=== PATIENT | female | born 1935 | race Caucasian/White ===

== ENCOUNTER 2016-12-02 18:07 | Inpatient (IN) | payer MEDICARE, OTHER ==
--- NOTE | ~2016-12-02 | HP ---
History And Physical [place] [id number] [facility] [place]. 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 She also has a history of hypothyroidism, hypertension, degenerative joint disease, osteoarthritis that she has been presenting today to [facility] accompanied by her with complaints of feeling extremely weak, pale, and not feeling well. It is important to note that in October, she has been started on chemotherapy under Dr. Martin's guidance. She received chemotherapy at [place]. She also received in the past an experimental drug after started on chemotherapy. The patient started to significantly decline according to her. She sees Dr. Martin each weak, and for about one week or so, she has been feeling sick and extremely weak. The weakness was progressive. She went to his office where lab work has shown that she has been extremely pancytopenic, anemic, and thrombocytopenic. She has been transfused blood and platelets, and according to Dr. Richards, who saw the patient at [facility], the patient has been discharged home yesterday in good condition. She does have significant decreased appetite though and constipation. She said she has not had a bowel movement in more than one week. She does not have a great appetite either. She does have a slightly cough. No sputum production, no dysuria no diarrhea, some constipation. Mild abdominal pain. No vomiting. No other complaints. She came to the Emergency Room, and after initial evaluation, she has been found profoundly pancytopenic. As a result, Hospitalist Service has been asked for admission, further evaluation, and treatment. PAST MEDICAL HISTORY: Significant for AML currently under treatment at [facility], history of degenerative joint disease, osteoarthritis, history of hypothyroidism and hypertension, history of fungal sinusitis in the past treated with amphotericin B. PAST SURGICAL HISTORY: Include bilateral hip replacement, hysterectomy, hematoma surgery, and sinus surgery for a fungus ball in June. SOCIAL HISTORY: She is not a smoker. She quit smoking 40 years ago. No alcohol. No IV drugs. She is . Her is at bedside and she has four children. ALLERGIES: SHE IS ALLERGIC TO CODEINE AND OXYCODONE. MEDICATIONS: Include Tylenol, Zovirax, Norvasc, vitamin B, biotin, Dacogen, Colace, Anca, levothyroxine, Prinivil, probiotic, Zofran, MiraLAX, Zantac, and Ultram. REVIEW OF SYSTEMS: A 14-point review of systems has been obtained and pertinent positive has been listed into the history of present illness. Otherwise, negative except those underlying above. PHYSICAL EXAMINATION: VITAL SIGNS: The patient currently is afebrile. Blood pressure 110/37, heart rate 85, History And Physical [address] [address] NAME: FAITH DAWKINS : 39 STATUS : ADM IN [facility]#: [id number] AGE: 81 ADM/REG DATE : 12/02/16 MR#: [id number] REPORT SERV DATE: 12/02/16 DICTATED BY: KACEY JACKSON DATE: 12/02/16 REPORT STATUS : Draft TRANSCRIBED BY: LORI DATE: 12/02/16 respiratory rate 23, and saturating 100% on room air. Very chronically ill-appearing female, in mild to moderate distress. She is alert and oriented x3. Very weak. She is very pale. Follows commands appropriately. HEENT: Show normocephalic, atraumatic. Throat is clear. Pupils equal, round, and reactive to light. Extraocular movements intact. NECK: No JVD. No lymphadenopathy. No thyromegaly appreciated. CHEST: Eval shows bilateral air entry. Diminished breath sounds bibasilarly. No wheezes, crackles, or rhonchi appreciated. CARDIOVASCULAR: She has regular rate and rhythm. S1, S2 positive. No S3, no S4. No murmurs, rubs, or gallops appreciated. ABDOMEN: Soft, nontender. No guarding. No rebound. EXTREMITIES: No clubbing, cyanosis, or erythema. NEUROLOGIC: She is alert and oriented x3. She is extremely weak. She follows commands. She moves all her extremities, but very slow. LABORATORY DATA: Labs from today include sodium 130, potassium 5.1, chloride 106, CO2 of 24, BUN 50, creatinine 1, and glucose is 242. Her total bilirubin is 0.5, alkaline phosphatase 74, ALT 10, and AST 7. Troponin I less than 0.02. White count is 0.6, hemoglobin 4.1, hematocrit 11.7, platelets are 7. Her INR is 1.6. Her chest x-ray does not show any acute infiltrate that I could be appreciated. ASSESSMENT AND PLAN: This is a very pleasant 81-year-old female with AML. 1. Pancytopenia. 2. History of AML. 3. Acute kidney injury. 4. Failure to thrive. 5. Hypothyroidism. 6. Degenerative joint disease and osteoarthritis. 7. Constipation. PLAN: 1. The patient is going to be admitted to Oncology Service regarding her pancytopenia. I am going to transfuse her four units of packed red blood cells and one unit of mono donor platelets. I am going to place her on broad-spectrum antibiotics with cefepime and vancomycin due to severity of her neutropenia. Consult Dr. Richards of Oncology Service. We will follow up the chest x-ray. We will get a CAT scan of the abdomen and pelvis in the morning. Provide supportive treatment as well. Nausea and pain control. 2. Acute kidney injury. We are going to provide vigorous IV hydration and follow a.m. labs. 3. Hypothyroidism. We will continue her home medications. 4. Degenerative joint disease and osteoarthritis. Provide supportive treatment. We will provide GI prophylaxis as well. I have discussed extensively with the patient as well as the patient's . The patient wishes in case her condition deteriorates and she has expressed her wishes that she does not want any aggressive measures such as intubation, mechanical ventilation, no CPR, no medications to treat life-threatening arrhythmia or hemodynamic deterioration according to the patient's prior wishes well History And Physical [address] [place]. [address] NAME: FAITH DAWKINS : 39 STATUS : ADM IN [facility]#: [id number] AGE: 81 ADM/REG DATE : 12/02/16 MR#: [id number] REPORT SERV DATE: 12/02/16 DICTATED BY: KACEY JACKSON DATE: 12/02/16 REPORT STATUS : Draft TRANSCRIBED BY: MODL DATE: 12/02/16 stated. We will honor patient, and family wishes, and make her do not resuscitate. Further workup and recommendation pending above. It is worthwhile to note that the patient is going to be followed up by Dr. Julius Husain. CF/MODL Kacey Jackson M.D. / [id number] CC: Maxim Willoughby M.D.
--- NOTE | ~2016-12-02 | DS ---
Discharge Summary [place] [address] [place]. [address] NAME: FAITH DAWKINS : 39 STATUS : DIS IN PAT#: [id number] AGE: 81 ADM/REG DATE : 12/02/16 MR#: [id number] REPORT SERV DATE: 12/04/16 DICTATED BY: DATE: REPORT STATUS : Draft TRANSCRIBED BY: MODL DATE: 12/03/16 ADMISSION DATE: 12/02/2016 DISCHARGE DATE: 12/03/2016 SUMMARY: DATE AND TIME OF : 12/03/2016 at 9:15 a.m. HOSPITAL COURSE: The patient was a 81-year-old female with a medical history significant for AML currently under treatment at [facility]. The patient was recently admitted to [facility] for severe pancytopenia. The patient received blood and platelet transfusion, and was discharged home two days ago. The patient presented to [facility] Emergency Department on 12/02/2016 with complaints of extreme weakness and decreased appetite. Initial evaluation included CBC, which reported white count 0.6, hemoglobin of 4.1, and hematocrit of 11.7. Platelets were 7. The patient was admitted for further evaluation and treatment regarding severe pancytopenia requiring transfusions. Four units of packed red blood cells and one unit of platelets were ordered in addition to CT scan of the abdomen and pelvis. The patient was also placed on broad-spectrum antibiotics to include cefepime and vancomycin due to severity of neutropenia. There was concern for underlying bleeding, source uncertain. Also concern for constipation, times at least seven days. The patient had received three of four units packed red blood cells this a.m. before being transported to Radiology for CT scan. Upon returning to the room, nurse reported the patient's blood pressure to be 75/40. Upon initial assessment the patient appeared pale, was unresponsive with agonal respirations. Time of was noted to be 9:15 a.m. Cause of related to shock secondary to likely hemorrhagic shock from occult blood, uncertain source. Also concern for bowel perforation in the setting of abdominal distention, and history of constipation for approximately one week. RICCARDO/LORI ALIZA HigginsC / [id number] Discharge Summary [place] [address] [place]. [address] NAME: FAITH DAWKINS : 39 STATUS : DIS IN PAT#: [id number] AGE: 81 ADM/REG DATE : 12/02/16 MR#: [id number] REPORT SERV DATE: 12/04/16 DICTATED BY: DATE: REPORT STATUS : Draft TRANSCRIBED BY: MODL DATE: 12/03/16 CC: MD Maxim Boone II, M.D.
[2016-12-02 17:38] LABS: BASOPHILS 1.6 %; BASOPHILS ABSOLUTE 0.01 10/3/uL (0.0-0.16); EOSINOPHILS 1.6 %; EOSINOPHILS ABSOLUTE 0.01 10/3/uL (0.0-0.53); ER CBC TAT 0 Hrs 09 Mins; HEMATOCRIT 11.8 % (36.0-48.0); HEMOGLOBIN 4.1 g/dL (12.0-16.0); LYMPHOCYTES 60.7 %; LYMPHOCYTES ABSOLUTE 0.37 10/3/uL (0.67-4.30); MEAN CORPUS HGB CONC 34.7 g/dL (32.0-36.0); MEAN CORPUSCULAR HEMOGLOB 28.7 pg (26.0-34.0); MEAN CORPUSCULAR VOLUME 82.5 fL (80-100); MONOCYTES 24.6 %; MONOCYTES ABSOLUTE 0.15 10/3/uL (0.21-1.20); NEUTROPHILS 11.5 %; NEUTROPHILS ABSOLUTE 0.07 10/3/uL (2.02-8.40); PLATELET COUNT 7 10/3/uL (150-400); RBC DISTRIBUTION WIDTH 14.6 % (12.0-16.0); RED CELL COUNT 1.43 10/6/uL (4.0-5.6); WHITE BLOOD CELLS 0.6 10/3/uL (4.5-10.5)
[2016-12-02 17:40] LABS: INTERNATIONAL NORMAL RATI 1.6 UNITS (-); PARTIAL THROMBO TIME 39.2 SEC (22.5-37.2)
[2016-12-02 17:43] LABS: MANUAL DIFF NO %
[2016-12-02 17:45] LABS: PROTIME (NOT ORD) 19.3 SEC (12.0-14.5)
[2016-12-02 17:50] LABS: CHLORIDE, SERUM 106 MMOL/L (96-112); CO2 (CARBON DIOXIDE) 24 MMOL/L (24-34); GFR AFRICAN AMERICAN 55 ML/MIN (>=60); GFR NON AFRICAN AMERICAN 48 ML/MIN (>=60); POTASSIUM, SERUM 5.1 MMOL/L (3.5-5.3); SGOT(AST) 7 U/L (5-40); SGPT(ALT) 10 U/L (5-65); SODIUM, SERUM 138 MMOL/L (135-148); TOTAL BILIRUBIN 0.5 MG/DL (0-1.2); TROPONIN I <0.02 NG/ML (<0.05)
[2016-12-02 17:56] LABS: A/G RATIO 0.7 (0.7-1.9); ALBUMIN 1.6 G/DL (3.5-5.0); ALKALINE PHOSPHATASE 74 U/L (45-117); BUN (BLOOD UREA NITROGEN) 50 MG/DL (6-23); CALCIUM, SERUM 7.3 MG/DL (8.5-10.4); GLOBULIN 2.3 G/DL (2.5-4.1); GLUCOSE, SERUM 242 MG/DL (60-99); TOTAL PROTEIN 3.9 G/DL (6.0-8.5)
[2016-12-02 18:05] LABS: BAND NEUTROPHILS 16 %; EOSINOPHILS 4 %; EOSINOPHILS ABSOLUTE (CALC) 0.02 10/3/uL (0.0-0.53); ER DIFF TAT 0 Hrs 36 Mins; LYMPHOCYTES 56 %; LYMPHOCYTES ABSOLUTE (CALC) 0.34 10/3/uL (0.67-4.30); MONOCYTES 8 %; MONOCYTES ABSOLUTE (CALC) 0.05 10/3/uL (0.21-1.20); NEUTROPHILS ABSOLUTE (CALC) 0.19 10/3/uL (2.02-8.40); SEGMENTED NEUTROPHIL (0) 16 %; TOTAL NUCLEATED CELLS 25
[~2016-12-02 18:07] MED LIST: ACET500CAP PO; ALLEGRA180 PO; ASAB PO; CELEBREX2 PO; COQ10100 MG OR; CYANO1000T PO; DACOGEN50 MG IV; DITRO5 PO; DSS PO; ESTRADIOL0.025 MG TD; FERROUS SULF325 M1 PO; GLUCCHONDR PO; HARD NAILS PO; LEVOTHYROXIN88 MCG PO; MAGNEBIND PO; MIRALAX POWDER1 PKT PO; MIRALAXPKT PO; MULTI-VIT HP OR; NORV10 PO; PRIN10 PO; PROBIOTIC PO; PROTONIX PO; RANITIDINE300 MG PO; REFRESH OPH; SUPER B COMP PO; SYN88 PO; ULTRAM50 PO; VESICARE5 PO; VIACTIV PO; VITAMIN B PO; VITAMIN D1000 UNI1 PO; VIVELLE-DOT0.0375 MG TOP; VIVELLE-DOT0.05 MG TOP; WELLXL300 PO; ZOCOR20 PO; ZOFRAN8 PO; ZOVIRAX400 MG PO; [UNRECOGNIZED DRUG - CODE] PO; [UNRECOGNIZED DRUG - OTHER] PO
[2016-12-03 04:08] LABS: RETICULOCYTE COUNT 0.8 % (0.5-2.5); RETICULOCYTE COUNT ABSOLUTE 23.1 10/3/uL (20.2-119.8)
[2016-12-03 04:18] LABS: INTERNATIONAL NORMAL RATI 1.8 UNITS (-); PARTIAL THROMBO TIME 28.3 SEC (22.5-37.2); PROTIME (NOT ORD) 20.5 SEC (12.0-14.5)
[2016-12-03 04:57] LABS: ASCORBIC ACID (UR NOT ORDER) 40 (NEG); BILIRUBIN, URINE NEGATIVE (NEG); KETONE, URINE NEGATIVE (NEG); LEUKOCYTE ESTERASE(NOT OR NEG (NEG); WBC (NOT ORDERED) (RFLEX) 0 (0-5)
[2016-12-03 05:00] LABS: B NATRIURETIC PEPTIDE (BNP) 12.1 PG/ML (< 100.0)
[2016-12-03 05:51] LABS: % IRON SAT 91 % (20-50); IRON BINDING CAPACITY 115 MCG/DL (225-410); IRON, SERUM 105 MCG/DL (35-150); PHOSPHORUS, SERUM 3.3 MG/DL (2.5-4.5)
[2016-12-03 06:08] LABS: PROCALCITONIN 0.27 ng/mL (<0.5)
[2016-12-03 06:50] LABS: CREATININE, URINE 85.7 MG/DL
== END 2016-12-03 12:30 | disposition expired | DRG 840 ==
LOC: ER 18:07 → 4EA 19:43
PROVIDERS: Emergency Medicine; Internal Medicine
PROC: 30233N0 Transfusion of Autologous Red Blood Cells into Peripheral Vein, Percutaneous Approach (ICD-10-PCS; principal; 2016-12-02)
DX: C92.Z0 Other myeloid leukemia not having achieved remission (principal); J16.8 Pneumonia due to other specified infectious organisms; T79.4XXA Traumatic shock, initial encounter; N17.9 Acute kidney failure, unspecified; D62 Acute posthemorrhagic anemia; D70.9 Neutropenia, unspecified; I10 Essential (primary) hypertension; E03.9 Hypothyroidism, unspecified; F32.9 Major depressive disorder, single episode, unspecified
CPT/HCPCS: 36415; 36430; 71010; 74176; 80053; 81001; 82140; 82150; 82570; 83036; 83540; 83550; 83605; 83615; 83690; 83735; 83880; 83935; 84100; 84145; 84300; 84439; 84443; 84484; 84550; 85025; 85045; 85610; 85730; 86850; 86900; 86901; 86920; 87040; 93005; 99285; A9270-GY; J0692; J1170; J1940; J3370; P9016; P9035